=== PATIENT | female | born 1965 | race American Indian/Alaskan Native ===

== ENCOUNTER 2017-08-24 07:07 | Day surgery (SDC) | payer MEDICAID ==
[~2017-08-24 07:07] MED LIST: Midazolam 1 MG/ML 2 ML SDV ONE; fentaNYL 100 MCG/2 ML SDV ONE
[2017-08-24] MEDS ORDERED: Midazolam 1 MG/ML 2 ML SDV IV ONE ×3 (07:08→08:01)
[2017-08-24] MEDS ORDERED: fentaNYL 100 MCG/2 ML SDV IV ONE ×3 (07:08→08:00)
[2017-08-24] MEDS ORDERED: Dextrose 5%-0.45% NaCl 1,000 ML IV SCH (07:45)
[2017-08-24 10:06] VITALS: BP 116/72
--- NOTE | 2017-08-24 14:09 | OR ---
DATE: 08/24/2017 PROCEDURE: Esophagogastroduodenoscopy, NBI HD views, and multiple pinch biopsies. INSTRUMENT USED: GIF-H180 Olympus video panendoscope. PREMEDICATIONS: No oral topical anesthesia used. Fentanyl 100 mcg intravenous, Versed 2 mg intravenous. Nasal O2 cannula. The procedure was done under pulse oximetry, BP recording, and cafeteria monitor. INDICATION: The patient with known previous carcinoid tumor with persistent upper abdominal pain, unexplained, and not responsive to medical measures. Esophagogastroduodenoscopy is performed for detection of any active erosive lesions, malignancy also under consideration, endoscopic hemostasis therapy if needed. DESCRIPTION OF PROCEDURE: The scope was passed with ease. Adequate visualization of the esophagus was made from proximal to distal areas. No upper esophageal lesions identified. No distal esophageal stricture. No uphill or downhill esophageal varices. No Irene-Toledo tear. No evidence of erosive esophagitis by Ladson criteria. No esophageal polyp or tumor mass identified. Z-line was seen at around 40 cm distal to the oral verge, configuration consistent with Grade 1 by ZAP classification. No proximal gastric varices noted. Gastric fundus examination by retroflexion showed no malignant lesions. In the distal gastric body, more than 1 cm sized submucosal lesion was noted. NBI and magnification views were obtained, photographs were taken, multiple pinch biopsies were taken and sent for histopathology. No gastric angiodysplasia or ulcerations noted. Duodenal bulb was normal. Visualized 2nd part of the duodenum was unremarkable. Photographs were taken of the duodenal bulb, gastric antrum, distal gastric body, fundus as well as distal esophagus. No bleeding was noted from any of the visualized areas at the completion of examination. IMPRESSION: Gastric body submucosal lesion. The patient tolerated the procedure well. [facility] /[id number]
== END 2017-08-24 10:17 | disposition home or self-care (01) ==
LOC: DL.ENDO 07:07
PROVIDERS: ATTEND Internal Medicine Gastroenterology
DX: C7A.8 Other malignant neuroendocrine tumors (principal); K29.40 Chronic atrophic gastritis without bleeding; E11.9 Type 2 diabetes mellitus without complications; E66.09 Other obesity due to excess calories; E78.00 Pure hypercholesterolemia, unspecified; D64.89 Other specified anemias
CPT/HCPCS: 43239; J2250; J3010; J7042

== ENCOUNTER 2018-05-31 05:31 | Day surgery (SDC) | payer MEDICAID ==
[2018-05-31] MEDS ORDERED: fentaNYL 100 MCG/2 ML SDV IV ONE ×3 (05:32→06:31)
[2018-05-31] MEDS ORDERED: Midazolam 1 MG/ML 2 ML SDV IV ONE ×3 (05:32→06:32)
[2018-05-31] MEDS ORDERED: Midazolam 1 MG/ML 2 ML SDV ONE (05:41)
[2018-05-31] MEDS ORDERED: fentaNYL 100 MCG/2 ML SDV ONE (05:42)
[2018-05-31] MEDS ORDERED: Sodium Chloride 0.9% 10 ML Syringe FLUSH PRN (06:00)
[2018-05-31] MEDS ORDERED: Dextrose 5%-0.45% NaCl 1,000 ML IV SCH (06:00)
--- NOTE | 2018-05-31 08:03 | OR ---
DATE: 05/31/2018 PROCEDURE: Esophagogastroduodenoscopy and multiple pinch biopsies. INSTRUMENT USED: GIF-HQ190 Olympus video panendoscope. PREMEDICATIONS: No oral topical anesthesia used. Fentanyl 100 mcg intravenous, Versed 2 mg intravenous. Nasal 2 L O2 cannula. The procedure was done under pulse oximetry, BP recording, and monitoring analyst. INDICATION: The patient with previous endoscopic gastric neuroendocrine tumor section. Surveillance Esophagogastroduodenoscopy is performed for detection of any residual tumor, as well as biopsies for any evidence of dysplasia, endoscopic hemostasis therapy if needed. She has known autoimmune gastritis. DESCRIPTION OF PROCEDURE: The scope was passed with ease. Adequate visualization of the esophagus was made from proximal to distal areas. No upper esophageal lesions identified. No distal esophageal stricture. No uphill or downhill esophageal varices. No Irene-Toledo tear. No evidence of erosive esophagitis by [place] criteria. No esophageal polyp or tumor mass identified. Z-line was seen at around 39 cm distal to the oral verge, configuration consistent with grade 1 by ZAP classification. No proximal gastric varices noted. Gastric fundus examination by retroflexion showed no polypoid lesions. No gastric ulcer, malignant mass, or vascular ectasia identified. Duodenal bulb showed no ulcer. Visualized second part of the duodenum was unremarkable. Numerous pinch biopsies were taken from the gastric antrum and proximal body and sent for any histopathologic evidence of dysplasia. No bleeding was noted from any of the visualized areas at the completion of examination. Photographs were taken of the duodenal bulb, gastric antrum, fundus, and distal esophagus. IMPRESSION: Normal study. The patient tolerated the procedure well. [facility] /[id number]
[2018-05-31 10:32] VITALS: BP 94/57
== END 2018-05-31 09:15 | disposition home or self-care (01) ==
LOC: DL.ENDO 05:31
PROVIDERS: ATTEND Internal Medicine Gastroenterology
DX: Z09 Encounter for follow-up examination after completed treatment for conditions other than malignant neoplasm (principal); K29.40 Chronic atrophic gastritis without bleeding; K31.9 Disease of stomach and duodenum, unspecified; E11.43 Type 2 diabetes mellitus with diabetic autonomic (poly)neuropathy; K31.84 Gastroparesis; E66.09 Other obesity due to excess calories; J45.909 Unspecified asthma, uncomplicated; I10 Essential (primary) hypertension; E78.00 Pure hypercholesterolemia, unspecified; F32.9 Major depressive disorder, single episode, unspecified; D50.9 Iron deficiency anemia, unspecified; Z87.19 Personal history of other diseases of the digestive system; Z79.4 Long term (current) use of insulin
CPT/HCPCS: 43239; J2250; J3010; J7042

== ENCOUNTER 2019-12-05 19:59 | Emergency (ER) | payer MEDICAID, OTHER ==
[2019-12-05 20:17] VITALS: BP 143/71; PULSE 68
[2019-12-05] MEDS ORDERED: Acetaminophen/HYDROcodone 325-10 MG Tab PO ONE (20:26)
--- NOTE | 2019-12-05 20:29 | CR ---
PROCEDURE INFORMATION: Exam: XR Left Ankle Exam date and time: 12/05/2019 8:09 PM Age: 54 years old Clinical indication: Pain; Ankle; Left; Additional info: Swelling pain TECHNIQUE: Imaging protocol: XR Left ankle. Views: 3 or more views. COMPARISON: No relevant prior studies available. FINDINGS: Bones/joints: No dunia macro fractures are identified. There are 2 small bone flakes measuring 2.5 mm and 2 mm at the tip of the medial malleolus suggesting small cortical avulsion fragments, age indeterminate. No blastic or lytic lesions. No periostitis or osteolysis. The ankle mortise joint is well maintained. No joint effusion. No hindfoot coalition. There is a small plantar calcaneal spur without evidence of erosion or fracture. Soft tissues: Moderate lateral and anterior soft tissue swelling at the ankle. No radiopaque foreign bodies. Vasculature: Moderate calcific atherosclerosis. Other findings: The visualized hindfoot and midfoot are grossly well aligned. IMPRESSION: 1. Small cortical avulsion fragments at the tip of the medial malleolus measuring about 2 mm and 2.5 mm in size, age indeterminate, without dunia macro fracture. 2. Moderate lateral and anterior soft tissue swelling at the ankle. 3. Moderate calcific atherosclerosis. 4. Plantar calcaneal spurring.
--- NOTE | 2019-12-06 00:08 | EDM.PDOC ---
ED HPI GENERAL MEDICAL PROBLEM - General Chief Complaint: Lower Extremity Injury/Pain Stated Complaint: LEFT ANKLE PAIN Time Seen by Provider: 12/05/19 20:15 Source of Information: Reports: Patient, RN History Limitations: Reports: No Limitations - History of Present Illness INITIAL COMMENTS - FREE TEXT/NARRATIVE: ED per w/c. C/O pain to left ankle. States push mowing and stepped and twisted ankle. Immediate pain, did not fall, no other injury, Unable to bear weight. no other c/o or injury Left Ankle Pain Score (Numeric/FACES): 10 - Related Data Allergies Allergy/AdvReac Type Severity Reaction Status Date / Time aspirin Allergy Unknown SHORT OF Verified 12/05/19 20:09 BREATH/WHEEZING/CHEST TIGHTNESS Home Meds: Home Meds Albuterol Sulfate [Ventolin Hfa] 1 puff INH Q4H PRN 08/16/15 [History] Fluticasone Propion/Salmeterol [Advair 500-50 Diskus] 1 dose INH BID 08/16/15 [History] Insulin Aspart [NovoLOG] 15 - 30 unit SQ TID 08/16/15 [History] Insulin Detemir [Levemir Flextouch] 120 unit SQ BEDTIME 08/16/15 [History] Lisinopril 10 mg PO DAILY 08/16/15 [History] Simvastatin 5 mg PO BEDTIME 08/16/15 [History] metFORMIN [Glucophage] 1,000 mg PO BID 08/16/15 [History] Bay's Leg Cramps 1 cap PO BEDTIME 05/31/18 [History] Ibuprofen [Advil Liqui-Gels] 200 mg PO Q6H PRN 05/31/18 [History] Past Medical History HEENT History: Reports: Allergic Rhinitis, Impaired Vision, Other (See Below) Other HEENT History: WEARS CORRECTIVE LENSES. Hearing loss on L) side Cardiovascular History: Reports: High Cholesterol, Hypertension Respiratory History: Reports: Asthma Gastrointestinal History: Reports: Diverticulosis, Other (See Below) Other Gastrointestinal History: ELEVATED LIVER ENZYMES; CARCINOID TUMOR GASTRIC. gastroparesis diabeticorum. autoimmune gastritis Genitourinary History: Reports: None TREASURY REPRESENTATIVE History: Reports: , Spontaneous Musculoskeletal History: Reports: None Neurological History: Reports: None Psychiatric History: Reports: Depression, Mood Swings Endocrine/Metabolic History: Reports: Diabetes, Type II, Obesity/BMI 30+ Hematologic History: Reports: Anemia, B12 Deficiency, Iron Deficiency Immunologic History: Reports: Other (See Below) Other Immunologic History: HX OF MRSA. autoimmune gastritis Oncologic (Cancer) History: Reports: None Dermatologic History: Reports: None - Infectious Disease History Infectious Disease History: Reports: MRSA Other Infectious Disease History: INFECTIOUS HX UNKNOWN TO PATIENT - Past Surgical History Head Surgeries/Procedures: Reports: None HEENT Surgical History: Reports: Other (See Below) Other HEENT Surgeries/Procedures: RIGHT MIDDLE EAR REPAIR Cardiovascular Surgical History: Reports: None Respiratory Surgical History: Reports: None GI Surgical History: Reports: Cholecystectomy, Colonoscopy, EGD Female Surgical History: Reports: Hysterectomy, Tubal Ligation Endocrine Surgical History: Reports: None Neurological Surgical History: Reports: None Musculoskeletal Surgical History: Reports: None Oncologic Surgical History: Reports: None Dermatological Surgical History: Reports: None Social & Family History - Family History Family Medical History: Noncontributory - Tobacco Use Smoking Status *Q: Never Smoker Second Hand Smoke Exposure: No - Caffeine Use Caffeine Use: Reports: Soda Other Caffeine Use: AVERAGE OF 2 cans pop DAILY - Recreational Drug Use Recreational Drug Use: No Review of Systems - Review of Systems Review Of Systems: Comprehensive ROS is negative, except as noted in HPI. ED EXAM, GENERAL - Physical Exam Exam: See Below Exam Limited By: No Limitations General Appearance: Alert, Moderate Distress Eye Exam: Bilateral Eye: EOMI Ears: Normal External Exam, Hearing Grossly Normal Nose: Normal Inspection Throat/Mouth: Normal Voice, No Airway Compromise Head: Atraumatic, Normocephalic Respiratory/Chest: No Respiratory Distress, Normal Breath Sounds Cardiovascular: Regular Rate, Rhythm Extremities: Joint Swelling (left ankle), Limited Range of Motion (left ankle lateral swelling and bruising. skin intact. ) Neurological: Alert, Oriented, Normal Cognition, No Motor/Sensory Deficits Psychiatric: Normal Affect, Normal Mood Skin Exam: Warm, Dry, Intact, Ecchymosis (left lateral ankle) Course - Vital Signs Last Recorded V/S: Last Vital Signs Temp 98.8 F 12/05/19 20:10 Pulse 68 12/05/19 20:10 Resp 16 12/05/19 20:10 BP 143/71 H 12/05/19 20:10 Pulse Ox 98 12/05/19 20:10 - Orders/Labs/Meds Meds: Medications Discontinued Medications Generic Name Dose Route Start Last Admin Trade Name Junior PRN Reason Stop Dose Admin Hydrocodone Bitart/Acetaminophen 1 tab 12/05/19 20:26 12/05/19 20:39 [place] 325-10 Mg PO 12/05/19 20:27 1 tab ONETIME ONE Administration - Re-Assessments/Exams Free Text/Narrative Re-Assessment/Exam: 12/06/19 00:06 Informed results of xray, concern, possible avulsion fracture, age indeterminate. Instructed to follow up with [facility]. Contact info provided with discharge instructions. Crutch teaching per RN. Departure - Departure Time of Disposition: 20:40 Disposition: Home, Self-Care 01 Clinical Impression: Sprain of left ankle Qualifiers: Encounter type: initial encounter Involved ligament of ankle: unspecified ligament Qualified Code(s): S93.402A - Sprain of unspecified ligament of left ankle, initial encounter - Discharge Information Instructions: Ankle Sprain, Oucl-ia-Yndf, Walking Boot, Adult Forms: ED Department Discharge Additional Instructions: rest ice elevation cam boot touch toe weight bearing until seen by ortho tylenol 650mg every 4 hours as needed for discomfort Sepsis Event Note (ED) - Evaluation Sepsis Screening Result: No Definite Risk - Focused Exam Vital Signs: Vital Signs Temp Pulse Resp BP Pulse Ox 12/05/19 20:10 98.8 F 68 16 143/71 H 98
== END 2019-12-05 20:41 | disposition home or self-care (01) ==
LOC: DL.ED 19:59
DX: S93.402A Sprain of unspecified ligament of left ankle, initial encounter (principal); I10 Essential (primary) hypertension; E78.00 Pure hypercholesterolemia, unspecified; J45.909 Unspecified asthma, uncomplicated; E11.9 Type 2 diabetes mellitus without complications; E66.9 Obesity, unspecified; Z68.31 Body mass index [BMI] 31.0-31.9, adult; Z98.890 Other specified postprocedural states; Z90.710 Acquired absence of both cervix and uterus; Z88.8 Allergy status to other drugs, medicaments and biological substances; Z79.4 Long term (current) use of insulin; Z79.899 Other long term (current) drug therapy; X50.1XXA Overexertion from prolonged static or awkward postures, initial encounter
CPT/HCPCS: 73610-LT; 99283; A9270-GY

== ENCOUNTER 2020-02-14 05:57 | Day surgery (SDC) | payer OTHER ==
[2020-02-14] MEDS ORDERED: fentaNYL 100 MCG/2 ML SDV IV ONE ×3 (05:58→06:54)
[2020-02-14] MEDS ORDERED: Midazolam 1 MG/ML 2 ML SDV IV ONE ×3 (05:58→06:55)
[2020-02-14] MEDS ORDERED: Sodium Chloride 0.9% 10 ML Syringe FLUSH PRN (06:00)
[2020-02-14] MEDS ORDERED: Dextrose 5%-0.45% NaCl 1,000 ML IV SCH (06:00)
[2020-02-14] MEDS ORDERED: Midazolam 1 MG/ML 2 ML SDV ONE (06:14)
[2020-02-14] MEDS ORDERED: fentaNYL 100 MCG/2 ML SDV ONE (06:14)
--- NOTE | 2020-02-14 09:16 | OR ---
DATE: 02/14/2020 PROCEDURE: Esophagogastroduodenoscopy and multiple pinch biopsies. INSTRUMENT USED: GIF-HQ190 Olympus video panendoscope. PREMEDICATIONS: No oral or topical anesthesia used. Fentanyl 100 mcg intravenous, Versed 2 mg intravenous. Nasal O2 cannula. The procedure was done under pulse oximetry, BP recording, and primary montessori teacher. INDICATION: The patient with known autoimmune gastritis and previous intestinal metaplasia as far as endoscopic resection of carcinoid tumor. Surveillance esophagogastroduodenoscopy is performed for detection of any intestinal metaplasia and/or dysplasia as well as malignancy. Endoscopic hemostasis therapy if needed. DESCRIPTION OF PROCEDURE: The scope was passed with ease. Adequate visualization of the esophagus was made from proximal to distal areas. No upper esophageal lesions identified. No distal esophageal stricture. No uphill or downhill esophageal varices. No Irene-Toledo tear. Z-line was noted at around 40 cm distal to the oral verge. Configuration consistent with grade 1 by ZAP classification. No proximal gastric varices noted. Gastric fundus examination by retroflexion showed no polypoid lesions. No gastric ulcer, malignant mass, or vascular ectasia identified. There was diffuse gastric atrophy noted. Duodenal bulb showed no ulcer. Visualized second part of the duodenum was unremarkable. Numerous pinch biopsies were taken from the antrum, distal, as well as proximal gastric body and fundus, and sent for any histopathologic evidence of intestinal metaplasia and/or dysplasia. No bleeding was noted from any of the visualized areas at the completion of examination. Photographs were taken of the duodenal bulb, gastric antrum, fundus, and distal esophagus. IMPRESSION: Diffuse gastric atrophy. The patient tolerated the procedure well. [facility] /[id number] NALLELY
[2020-02-14 09:56] VITALS: BP 142/84; PULSE 50
--- NOTE | 2020-02-14 13:04 | LETTER ---
02/14/2020 Clare Restrepo NP [facility] [address] [place] [address] RE: PLACIDOJOYELISEO KEANE : 1965 Dear Ms. Restrepo: Ms. Rajat Benito had esophagogastroduodenoscopy done this morning and she tolerated the procedure well. I herewith send a copy of the endoscopy note and photographs for your review. Thank you. Sincerely, [facility] /[id number]
== END 2020-02-14 09:18 | disposition home or self-care (01) ==
LOC: DL.ENDO 05:57
PROVIDERS: ATTEND Internal Medicine Gastroenterology
DX: K29.40 Chronic atrophic gastritis without bleeding (principal); K31.89 Other diseases of stomach and duodenum; E66.09 Other obesity due to excess calories; J45.998 Other asthma; I10 Essential (primary) hypertension; E78.00 Pure hypercholesterolemia, unspecified; F32.9 Major depressive disorder, single episode, unspecified; K57.30 Diverticulosis of large intestine without perforation or abscess without bleeding; M19.90 Unspecified osteoarthritis, unspecified site; D50.9 Iron deficiency anemia, unspecified; E11.43 Type 2 diabetes mellitus with diabetic autonomic (poly)neuropathy; K31.84 Gastroparesis; Z98.890 Other specified postprocedural states; Z90.49 Acquired absence of other specified parts of digestive tract; Z87.19 Personal history of other diseases of the digestive system; Z90.710 Acquired absence of both cervix and uterus; Z68.31 Body mass index [BMI] 31.0-31.9, adult
CPT/HCPCS: 43239; J2250; J3010; J7042

== ENCOUNTER 2020-09-28 05:37 | Day surgery (SDC) | payer OTHER ==
[2020-09-28] MEDS ORDERED: Midazolam 1 MG/ML 2 ML SDV IV ONE ×6 (05:38→06:45)
[2020-09-28] MEDS ORDERED: fentaNYL 100 MCG/2 ML SDV IV ONE ×3 (05:38→06:35)
[2020-09-28] MEDS ORDERED: Dextrose 5%-0.45% NaCl 1,000 ML IV SCH (06:00)
[2020-09-28] MEDS ORDERED: Sodium Chloride 0.9% 10 ML Syringe FLUSH PRN (06:00)
[2020-09-28 09:38] VITALS: BP 135/53; PULSE 49
--- NOTE | 2020-09-28 13:30 | OR ---
DATE: 09/28/2020 PROCEDURE: Total colonoscopy. INSTRUMENT USED: PCF-H190DL Olympus video colonoscope. PREMEDICATIONS: Fentanyl 100 mcg intravenous, Versed 4 mg intravenous. Nasal O2 cannula. The procedure was done under pulse oximetry, BP recording, and compliance monitor. INDICATION: The patient with iron deficiency anemia. Colonoscopic examination is done for detection of any polypoid lesions and removal, endoscopic hemostasis therapy if needed. DESCRIPTION OF PROCEDURE: Initial rectal exam was unremarkable. Rigid anoscopy was normal. The colonoscope was passed with ease. Numerous scattered diverticula were noted in the distal left colon along with deformity. The scope was passed with ease into the ileocecal area. Photographs were taken of the normal-appearing cecum identified by landmarks of appendiceal orifice and double- bulged ileocecal folds. No bleeding was noted from any of the visualized areas at the commencement of the examination. The bowel preparation was found to be adequate. [place] scale 3 in all the regions, total score 9. No stricture. No vascular ectasia. No large isolated ulcerations seen. No evidence of diffuse inflammatory bowel disease in the form of friability, contact bleeding, or ulcerations. No polyp or tumor mass stated. Probing the proximal sides of folds and flexures using adequate distention and clearing up the stool material, withdrawal of the scope was made, cecum to rectum time over 6 minutes. No bleeding was noted from any of the visualized areas at the completion of the examination. IMPRESSION: Diverticulosis. The patient tolerated the procedure well. [facility] /[id number]
--- NOTE | 2020-09-28 14:13 | LETTER ---
09/28/2020 RE: RAJAT BENITO : 1965 Clare Restrepo NP [facility] [address] [place] [address] Dear Ms. Restrepo: Ms. Rajat Benito had colonoscopic examination done this morning and she tolerated the procedure well. I herewith send a copy of the endoscopy note and photographs for your review. Thank you. Sincerely, [facility] /[id number]
== END 2020-09-28 08:59 | disposition home or self-care (01) ==
LOC: DL.ENDO 05:37
PROVIDERS: ATTEND Internal Medicine Gastroenterology
DX: K57.30 Diverticulosis of large intestine without perforation or abscess without bleeding (principal); D50.9 Iron deficiency anemia, unspecified; E11.9 Type 2 diabetes mellitus without complications; K29.60 Other gastritis without bleeding; Z90.49 Acquired absence of other specified parts of digestive tract; Z79.4 Long term (current) use of insulin
CPT/HCPCS: 45378; J2250; J3010; J7042

== ENCOUNTER 2020-10-04 06:00 | Day surgery (SDC) | payer OTHER ==
[~2020-10-04 06:00] MED LIST changes: +Dextrose 5%-0.45% NaCl 1,000 ML IV SCH; +Sodium Chloride 0.9% 10 ML Syringe FLUSH PRN
[2020-10-04] MEDS ORDERED: fentaNYL 100 MCG/2 ML SDV IV ONE ×3 (06:01→07:41)
[2020-10-04] MEDS ORDERED: Midazolam 1 MG/ML 2 ML SDV IV ONE ×3 (06:01→07:42)
[2020-10-04 10:47] VITALS: BP 133/67; PULSE 51
--- NOTE | 2020-10-04 11:18 | OR ---
DATE: 10/04/2020 PROCEDURE PERFORMED: Esophagogastroduodenoscopy and multiple pinch biopsies. INSTRUMENT USED: GIF-HQ190 Olympus video panendoscope. PREMEDICATIONS: No oral or topical anesthesia used. Fentanyl 100 mcg intravenous, Versed 2 mg intravenous. Nasal O2 cannula. The procedure was done under pulse oximetry, BP recording, and library monitor. INDICATIONS: The patient with persistent iron-deficiency anemia and known autoimmune gastritis with recent CT suggestive of portal hypertension. Esophagogastroduodenoscopy is performed for detection of any active erosive lesions, malignancy also under consideration, detection of any varices, endoscopic hemostasis therapy if needed. DESCRIPTION OF PROCEDURE: The scope was passed with ease. Adequate visualization of the esophagus was made from proximal to distal areas. No upper esophageal lesions identified. No distal esophageal stricture. No uphill or downhill esophageal varices. No Irene-Toledo tear. No evidence of erosive esophagitis by [place] criteria. No esophageal polyp or tumor mass identified. Z-line was seen at around 40 cm distal to the oral verge. No proximal gastric varices noted. Gastric fundus examination by retroflexion showed no polypoid lesions. No gastric ulcer, malignant mass, or vascular ectasia identified. Duodenal bulb showed no ulcer. Visualized 2nd part of the duodenum was unremarkable. Multiple pinch biopsies, 4 in number, were taken from different areas of the 2nd part of the duodenum and tissues were also obtained from the duodenal bulb at 9 and 12 o'clock positions and sent for any evidence of celiac disease. Multiple pinch biopsies, 8 in number, were taken from the distal gastric mucosa and 8 from the proximal gastric mucosa and sent for any histopathologic evidence of dysplasia. No active bleeding was noted from any of the visualized areas at the completion of examination. Photographs were taken of the duodenal bulb, gastric antrum, fundus, and distal esophagus. IMPRESSION: Normal study. The patient tolerated the procedure well. [facility] /[id number]
--- NOTE | 2020-10-04 13:17 | LETTER ---
10/04/2020 RE: RAJAT BENITO : 1965 Clare Restrepo NP [facility] [address] [place] [address] Dear Ms. Restrepo: Ms. Rajat Benito had esophagogastroduodenoscopy done this morning, and she tolerated the procedure well. I herewith send a copy of the endoscopy note and photographs for your review. Thank you. Sincerely, [facility] /[id number]
== END 2020-10-04 10:15 | disposition home or self-care (01) ==
LOC: DL.ENDO 06:00
PROVIDERS: ATTEND Internal Medicine Gastroenterology
DX: K29.40 Chronic atrophic gastritis without bleeding (principal); D50.9 Iron deficiency anemia, unspecified; K29.60 Other gastritis without bleeding; K76.6 Portal hypertension; K31.89 Other diseases of stomach and duodenum; E11.9 Type 2 diabetes mellitus without complications
CPT/HCPCS: J2250; J3010; J7042

== ENCOUNTER 2021-12-05 05:46 | Day surgery (SDC) | payer MEDICAID, OTHER ==
[2021-12-05] MEDS ORDERED: Midazolam 1 MG/ML 2 ML SDV IV ONE ×3 (05:47→07:12)
[2021-12-05] MEDS ORDERED: fentaNYL 100 MCG/2 ML SDV IV ONE ×3 (05:47→07:11)
[2021-12-05] MEDS ORDERED: Dextrose 5%-0.45% NaCl 1,000 ML IV SCH (06:00)
[2021-12-05] MEDS ORDERED: Sodium Chloride 0.9% 10 ML Syringe FLUSH PRN (06:00)
[2021-12-05] MEDS ORDERED: Midazolam 1 MG/ML 2 ML SDV ONE (06:15)
[2021-12-05] MEDS ORDERED: fentaNYL 100 MCG/2 ML SDV ONE (06:15)
[2021-12-05] MEDS ORDERED: Sodium Chloride 0.9% 10 ML Syringe FLUSH SCH (09:00)
[2021-12-05 09:14] VITALS: BP 144/58; PULSE 44
== END 2021-12-05 09:30 | disposition home or self-care (01) ==
LOC: DL.ENDO 05:46
PROVIDERS: ATTEND Internal Medicine Gastroenterology
DX: K29.50 Unspecified chronic gastritis without bleeding (principal); K31.89 Other diseases of stomach and duodenum; K31.A0 Gastric intestinal metaplasia, unspecified; D72.820 Lymphocytosis (symptomatic); D50.9 Iron deficiency anemia, unspecified; E66.09 Other obesity due to excess calories; I10 Essential (primary) hypertension; E11.43 Type 2 diabetes mellitus with diabetic autonomic (poly)neuropathy; K31.84 Gastroparesis; F32.A Depression, unspecified; J45.909 Unspecified asthma, uncomplicated; Z68.30 Body mass index [BMI] 30.0-30.9, adult
CPT/HCPCS: 87077; J2250; J3010; J7042

== ENCOUNTER 2024-05-26 06:16 | Day surgery (SDC) | payer OTHER ==
[~2024-05-26 06:16] MED LIST changes: -Dextrose 5%-0.45% NaCl 1,000 ML IV SCH; +Midazolam 1 MG/ML 2 ML SDV IV ONE; -Sodium Chloride 0.9% 10 ML Syringe FLUSH PRN; +fentaNYL 100 MCG/2 ML SDV IV ONE
[2024-05-26] MEDS: Dextrose 5%-0.45% NaCl 1,000 ML IV SCH (06:46)
[2024-05-26] MEDS: fentaNYL 100 MCG/2 ML SDV IV ONE ×2 (07:12→07:13)
[2024-05-26] MEDS: Midazolam 1 MG/ML 2 ML SDV IV ONE ×2 (07:13→07:14)
[2024-05-26 08:26] VITALS: PULSE 50
[2024-05-26 08:30] VITALS: BP 106/42
== END 2024-05-26 09:07 | disposition home or self-care (01) ==
LOC: DL.ENDO 06:16
PROVIDERS: ATTEND Internal Medicine Gastroenterology
DX: K29.50 Unspecified chronic gastritis without bleeding (principal); K31.89 Other diseases of stomach and duodenum; K31.A0 Gastric intestinal metaplasia, unspecified; E11.9 Type 2 diabetes mellitus without complications; E78.00 Pure hypercholesterolemia, unspecified; Z88.8 Allergy status to other drugs, medicaments and biological substances
CPT/HCPCS: 43239; J2250; J3010; J7799